=== PATIENT | female | born 1945 | race Caucasian/White ===

== ENCOUNTER 2022-08-05 12:27 | Emergency (ER) | payer OTHER, MEDICAID ==
[~2022-08-05] VITALS: Ht 162.6 cm; Wt 58.0 kg
[2022-08-05] MEDS ORDERED: MORPHINE SULFATE 4 MG/ML CPJ (NOT FOR IM USE) IV ONE (12:45)
[2022-08-05] MEDS ORDERED: SODIUM CHLORIDE 0.9% 1,000 ML IV ONE (12:45)
[2022-08-05] MEDS ORDERED: ONDANSETRON HCL 4MG/2ML INJ IV ONE (12:45)
[2022-08-05 13:29] VITALS: BP 138/70
[2022-08-05 13:32] LABS: BASOPHILS % 0.6 % (0.0-2.0); EOSINOPHILS % 1.6 % (0.0-5.0); HEMATOCRIT. 32.4 % (36.0-48.0); HEMOGLOBIN. 11.2 g/dL (12.0-16.0); LYMPHOCYTES % 26.9 % (20.0-50.0); MEAN CORPUSCULAR HEMOGLOBIN 29.6 pg (28.0-32.0); MEAN PLATELET VOLUME 7.1 fl (7.4-10.4); MONOCYTES % 8.5 % (2.0-8.0); NEUTROPHILS % 62.4 % (40.0-76.0); PLATELET 246 x1000/uL (130-400); RED BLOOD CELL COUNT 3.77 mill/uL (4.2-5.4); RED CELL DISTRIBUTION WIDTH 13.8 % (11.6-14.6)
[2022-08-05 13:40] LABS: CHLORIDE 95 mEq/L (98-107)
[2022-08-05 13:55] LABS: ETHANOL BLOOD < 10 mg/dL
[2022-08-05] MEDS ORDERED: IOHEXOL-350 100 ML BOTTLE ONE (18:01)
[2022-08-05] MEDS ORDERED: ONDA4TAB50 MT ×2 (18:11→18:12)
[2022-08-05] MEDS ORDERED: ACET-2708 MT (18:11)
== END 2022-08-05 18:34 | disposition home or self-care (01) ==
LOC: ER 12:27
DX: E87.20 Acidosis, unspecified (principal); R10.30 Lower abdominal pain, unspecified; E11.9 Type 2 diabetes mellitus without complications; I10 Essential (primary) hypertension; F03.90 Unspecified dementia, unspecified severity, without behavioral disturbance, psychotic disturbance, mood disturbance, and anxiety; Z90.710 Acquired absence of both cervix and uterus
CPT/HCPCS: 36415; 71045; 71275; 74174; 80053; 80320; 83605; 83690; 83880; 84484; 85025; 93005; 96374; 96375; 99285; J2270; J2405; J7030; Q9967; G0480